=== PATIENT | female | born 1990 | race Hispanic/Latino ===

== ENCOUNTER 2021-09-29 15:01 | Emergency (ER) | payer MEDICAID ==
[2021-09-29 15:22] VITALS: BP 146/57
== END 2021-09-30 04:45 | disposition left against medical advice (07) ==
LOC: ED 15:01
DX: H57.9 Unspecified disorder of eye and adnexa (principal); Z53.21 Procedure and treatment not carried out due to patient leaving prior to being seen by health care provider